=== PATIENT | female | born 1965 | race Caucasian/White ===

== ENCOUNTER 2025-05-01 22:36 | Emergency (ER) | payer MEDICAID ==
[~2025-05-01] VITALS: Ht 170.2 cm; Wt 96.8 kg
[2025-05-01 22:54] VITALS: TEMP 98.2
--- NOTE | 2025-05-01 23:38 | RADIOLOGY REPORT ---
EXAMINATIONS: 4 views of the left knee CLINICAL HISTORY: KNEE PAIN LEFT COMPARISON: None Findings and impression: No grossly displaced fractures or dislocations identified on the provided vi ews. No appreciable joint effusion. Mild tricompartmental arthritic changes, which are most apparent at the lateral tibiofemoral compartm ent.
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
[2025-05-01] MEDS ORDERED: IBUP-864 PO (23:44)
[2025-05-01] MEDS ORDERED: AMLO5TAB PO (23:44)
[2025-05-01 23:54] VITALS: BP 180/102; PULSE 61; RESP 16; O2SAT 98
== END 2025-05-01 23:56 | disposition home or self-care (01) ==
LOC: ER 22:36
DX: M25.462 Effusion, left knee (principal); I10 Essential (primary) hypertension; V89.2XXA Person injured in unspecified motor-vehicle accident, traffic, initial encounter; Y92.410 Unspecified street and highway as the place of occurrence of the external cause; Y93.89 Activity, other specified; Y92.89 Other specified places as the place of occurrence of the external cause; Y99.8 Other external cause status
CPT/HCPCS: 73564; 99283